=== PATIENT | female | born 1975 | race Caucasian/White ===

== ENCOUNTER 2024-03-02 12:34 | Inpatient (IN) ==
--- NOTE | 2024-03-02 13:08 | Emergency Department Note ---
Impression & Plan Left leg cellulitis, Hyponatremia, Hypokalemia ED Provider Note NAME: GRISELDA RUBALCAVA AGE: 48 SEX: F : 1975 ARRIVES VIA: Walk-In INFORMANT: Patient, ED PROVIDER(S): Todd Terry MD CHIEF COMPLAINT: Rash, shortness of breath, outpatient referral, feels unwell MEDICAL DECISION MAKING: Patient presented due to concern for worsening left lower extremity rash. The patient does have signs consistent with cellulitis. IV was established blood work was obtained patient to have a DVT ultrasound ordered and the patient did receive IV Rocephin. Patient's blood work showed a white count of 15 with a normal hemoglobin and platelet count kidney function was unremarkable. Patient is hyponatremic at 129 with mildly low potassium at 3.4. Troponin negative. Patient's procalcitonin was 2. Pa patient's chest x-ray was negative. The patient's DVT ultrasound does not show evidence of DVT but does have lymphadenopathy that is likely reactive. I did inform the patient of these findings. After further discussion with the patient patient would prefer inpatient treatment which did not think is unreasonable. Vancomycin was added. I did speak the on-call hospital service Dr. Chinchilla and the patient was admitted to medicine service Discussion w/ other healthcare providers: Dr. Chinchilla inpatient medicine service Prior /Outside records reviewed: None Differential diagnosis: Cellulitis, abscess, MRSA infection, DVT, necrotizing fasciitis, dermatitis, drug eruption, allergic reaction, as well as other pathologies were considered. Diagnostics, as interpreted by me: ECG: Normal sinus rhythm, rate of 86, normal intervals, left axis deviation no ST elevations T wave inversion in lead III. Cardiac monitoring: An order was placed for continuous cardiac monitoring. The monitor shows a rate of 85 with sinus rhythm. Patient was placed on pulse oximetry Medical decision rules: None Imaging studies: I informally interpreted the patient's chest x-ray does not show obvious pneumonia or pneumothorax with formal report to follow. HPI: Patient presents due to concern for rash and outpatient referral and feeling generally unwell. Patient states that the rash began several months ago and thought this may be eczema as the patient did have some associated itchiness. The patient had been routinely applying Goldbond lotion. Patient states that occasionally she will get some clear drainage but it was never foul- smelling or purulent in nature. Patient states that she did not have any additional symptoms but noticed on Friday the patient did have feelings of nausea headache felt hot and cold but did not take a temperature at home. 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 Patient denies any history of DVT or PE but had complained of some shortness of breath today and was referred here for further evaluation treatment for [facility]. Patient denies any recent surgeries procedures or hospitalizations no history of DVT or PE in the patient denies any chest pain. Patient did report feeling feverish but no documented elevated temperature and the patient states that she did take a temperature at home and was afebrile. Patient denies any falls or trauma no tobacco use. Patient denies any estrogen replacement therapy or control. No recent prolonged car or plane travel. Patient states that she does have pain and worsening redness and swelling to the distal left lower extremity and has been scratching at it. Patient denies nausea vomiting or diarrhea PAST MEDICAL HISTORY: See Below PAST SURGICAL HISTORY: See Below SOCIAL HISTORY: See Below HOME MEDICATIONS: See Below ALLERGIES: See Below VITALS: See Below PHYSICAL EXAMINATION: GENERAL: NAD, non-toxic. Wearing glasses. EYE EXAM: Normal conjunctiva. PERRL, no anisocoria and EOM's grossly intact w/o pain. OROPHARYNX: Moist mucus membranes, grossly normal dentition. NECK: Trachea midline, no stridor. Supple, no nuchal rigidity, no adenopathy, non-tender. No signs of meningismus. FROM of the neck with good chin to chest and neck extension. LUNGS: Clear to auscultation. Normal chest wall mechanics. HEART: NSR, no MRG. ABDOMEN: Abdomen soft, non-tender, no masses, no rebound or guarding. BACK: No CVA TTP. SKIN: No rashes and no bruising. UPPER EXTREMITIES: Upper extremities are grossly normal. LOWER EXTREMITIES: Grossly normal, warm tender and red rash with excoriations noted healing eschar is noted from the proximal polk distally, blanching erythema without crepitus good DP pulse NEURO EXAM: A&O x3, cranial nerves II-XII grossly intact, normal speech, moves all 4 extremities. 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 Beliefs That Will Affect Care: None Current Living Situation: Family Feels Safe at Home: Yes Safety Concerns: Feels Safe At This Time Assistive Devices: None Allergies Allergies Allergy/AdvReac Type Severity Reaction Status Date / Time animal dander Allergy Mild runny Unverified 03/02/24 16:26 nose, itchy eyes tree and shrub pollen Allergy Mild runny Unverified 03/02/24 16:26 nose, itchy eyes Home Meds Home Medications Medication Instructions Recorded Confirmed Calcium + D 2 tab PO PM 03/02/24 03/02/24 Multi Vitamin 2 tab PO PM 03/02/24 03/02/24 albuterol sulfate 90 mcg/actuation 2 puff inhalation Q4H PRN Other 03/02/24 03/02/24 aerosol inhaler fluticasone propionate 220 2 puff inhalation UD PRN Cough 03/02/24 03/02/24 mcg/actuation HFA aerosol inhaler Results & Data (ED) Vital Signs Vital Signs - 24 hr 03/02/24 12:38 Temperature 36.6 C Temperature Source Oral Pulse Rate 94 H Respiratory Rate 24 Respiratory Depth Shallow Blood Pressure 130/85 Blood Pressure Mean 100 Pulse Oximetry 97 Oxygen Delivery Method Room Air Sepsis Recent Fever Within 48 Hours Yes Sepsis New/Unexplained Change in Mental Status No Sepsis Action Taken by Nursing No Action Required Home Medications Current Medication List: was personally reviewed by me Laboratory Data Attestation: I reviewed the patient's lab results. 03/03/24 06:33 03/03/24 06:33 Lab Results 03/02/24 03/02/24 03/02/24 Range/Units 12:59 13:39 14:27 WBC 15.85 H (4.8-10.8) K/ul RBC 4.72 (4.20-5.40) M/uL Hgb 13.1 (12.0-16.0) g/dl Hct 38.1 (37.0-47.0) % MCV 80.7 (80.0-100.0) fL MCH 27.8 (25.0-34.0) pg MCHC 34.4 (32.0-36.0) g/dL RDW Std Deviation 38.2 (36.4-46.3) fL RDW Coeff of Jennifer 13.1 (11.5-14.5) % Plt Count 260 (130-400) K/uL MPV 9.3 L (9.4-12.4) fL Immature Gran % (Auto) 0.8 % Neut % (Auto) 87.9 % Lymph % (Auto) 4.9 % Whiteside % (Auto) 6.2 % Eos % (Auto) 0.0 % Baso % (Auto) 0.2 % Neut # (Auto) 13.92 H (1.40-6.50) K/uL Lymph # (Auto) 0.78 L (1.20-3.40) K/uL Whiteside # (Auto) 0.99 H (0.11-0.59) K/uL Eos # (Auto) 0.00 (0.00-0.50) K/uL Baso # (Auto) 0.03 (0.00-0.20) K/uL Immature Gran # (Auto) 0.13 (0.01-0.20) K/uL PT 11.9 (9.0-12.0) Seconds INR 1.1 (0.9-1.1) APTT 35 H (21-31) Seconds PTT Ratio 1.2 Sodium 129 L (136-145) mmol/L Potassium 3.4 L (3.5-5.1) mmol/L Chloride 96 L (98-107) mmol/L Carbon Dioxide 23 (21-32) mmol/L Anion Gap 10 (3-11) BUN 17 (6-23) mg/dl Creatinine 0.76 (0.6-1.2) mg/dl Est Cr Clr Drug Dosing 111.7 ml/min Est GFR ( Amer) 106.0 ml/min Est GFR (Non-Af Amer) 91.5 ml/min BUN/Creatinine Ratio 22.4 H (10-20) Glucose 115 H (70-99(Fasting)) mg/dl Calcium 8.9 (8.6-10.3) mg/dl Total Bilirubin 0.9 (0.2-1.0) mg/dl AST 20 (13-39) U/L ALT 17 (7-52) U/L Alkaline Phosphatase 69 (34-104) U/L Troponin I High Sens 11.0 9.4 (0-14) pg/ml Total Protein 7.6 (6.0-8.3) gm/dl Albumin 3.8 (3.4-5.0) gm/dl Globulin 3.8 (2.5-4.0) gm/dl Albumin/Globulin Ratio 1.0 (0.9-2) Procalcitonin Cancelled 2.01 H Administered Medications Acetaminophen (Acetaminophen 325 Mg Tab) 650 mg PO Q4H PRN PRN Reason: pain/fever Stop: 04/01/24 20:57 Last Admin: 03/03/24 17:03 Dose: 650 mg Documented By: Admin: 03/03/24 05:02 Dose: 650 mg Documented By: Admin: 03/02/24 22:28 Dose: 650 mg Documented By: ROXANNE Calcium/Vitamin D (Calcium 600mg + Vit D 400 Iu Tab) 2 tab PO QPM [facility] Stop: 04/01/24 20:59 Last Admin: 03/03/24 21:31 Dose: 2 tab Documented By: Admin: 03/02/24 22:21 Dose: 2 tab Documented By: ROXANNE Heparin Sodium (Porcine) (Heparin Sod 5,000 Unit/0.5 Ml Vial) 5,000 units SQ Q8 [facility] Stop: 04/01/24 21:59 Last Admin: 03/03/24 21:32 Dose: Not Given Documented By: Admin: 03/03/24 13:32 Dose: 5,000 units Documented By: Admin: 03/03/24 05:00 Dose: Not Given Documented By: Admin: 03/02/24 22:14 Dose: Not Given Documented By: ROXANNE Ceftriaxone Sodium (Rocephin) 2,000 mg in 50 mls @ 100 mls/hr IV Q24H [facility] Stop: 03/10/24 08:59 Last Infusion: 03/03/24 09:02 Dose: Infused Documented By: Admin: 03/03/24 08:03 Dose: 100 mls/hr Documented By: NATIVIDAD Vancomycin HCl 1,250 mg/ (Sodium Chloride) 285 mls @ 200 mls/hr IV Q12H [facility] Stop: 03/10/24 05:59 Last Infusion: 03/03/24 20:01 Dose: Infused Documented By: Admin: 03/03/24 17:39 Dose: 200 mls/hr Documented By: Infusion: 03/03/24 07:28 Dose: Infused Documented By: Admin: 03/03/24 05:57 Dose: 200 mls/hr Documented By: ROXANNE Multivitamins (Multivitamin Tab) 2 tab PO QPM [facility] Stop: 04/01/24 20:59 Last Admin: 03/03/24 21:31 Dose: 2 tab Documented By: Admin: 03/02/24 22:21 Dose: 2 tab Documented By: ROXANNE Triamcinolone Acetonide (Triamcinolone Acet 0.1% Oint 80 Gm Tube) 1 appln EXT BID [facility] Stop: 04/02/24 10:29 Last Admin: 03/03/24 21:32 Dose: 1 appln Documented By: Admin: 03/03/24 11:12 Dose: 1 appln Documented By: NATIVIDAD Discontinued Medications Sodium Chloride (Nss) 1,000 mls @ 999 mls/hr IV .Q1H1M ONE Stop: 03/02/24 14:20 Last Infusion: 03/02/24 14:51 Dose: Infused Documented By: Admin: 03/02/24 13:32 Dose: 999 mls/hr Documented By: ABAD Ceftriaxone Sodium (Rocephin) 1,000 mg in 50 mls @ 100 mls/hr IV NOW STA Stop: 03/02/24 13:49 Last Infusion: 03/02/24 14:01 Dose: Infused Documented By: Admin: 03/02/24 13:31 Dose: 100 mls/hr Documented By: ABAD Vancomycin HCl 2,750 mg/ (Sodium Chloride) 555 mls @ 200 mls/hr IV NOW ONE Stop: 03/02/24 19:32 Last Infusion: 03/02/24 21:48 Dose: Infused Documented By: Admin: 03/02/24 17:33 Dose: 200 mls/hr Documented By: MONI Sodium Chloride (Nss) 1,000 mls @ 125 mls/hr IV .Q8H [facility] Stop: 03/03/24 04:57 Last Infusion: 03/03/24 06:37 Dose: Infused Documented By: Admin: 03/02/24 22:20 Dose: 125 mls/hr Documented By: ROXANNE Ketorolac Tromethamine (Ketorolac Tromethamine 15 Mg/Ml Vial) 10 mg IV NOW ONE Stop: 03/02/24 13:21 Last Admin: 03/02/24 13:31 Dose: 10 mg Documented By: ABAD Ketorolac Tromethamine (Ketorolac Tromethamine 15 Mg/Ml Vial) 15 mg IV NOW STA Stop: 03/03/24 18:20 Last Admin: 03/03/24 18:36 Dose: 15 mg Documented By: NATIVIDAD Ondansetron HCl (Ondansetron Inj 2 Mg/Ml 2 Ml Vial) 4 mg IV NOW STA Stop: 03/02/24 13:22 Last Admin: 03/02/24 13:31 Dose: 4 mg Documented By: ABAD Potassium Chloride (Potassium Chloride Crtab 20 Meq Tabcr) 40 meq PO NOW STA Stop: 03/02/24 17:56 Last Admin: 03/02/24 18:45 Dose: 40 meq Documented By: MONI Imaging Data Radiologist's Impression: Chest X-Ray 03/02/24 12:46 XR chest 1V not portable HISTORY: 48 years-old Female Chest pain, nonspecific COMPARISON: None TECHNIQUE: AP view of the chest FINDINGS: Cardiomediastinal and hilar silhouettes are within normal limits. No pneumothorax, pleural effusion or airspace consolidation. The bones appear normal. IMPRESSION: No acute process. ACT 112: Negative or not required by law. The above report was generated using voice recognition software. It may contain grammatical, syntax or spelling errors. Electronically signed by: Jerry Davis M.D. 03/02/2024 1:48 PM Venous Doppler Study 03/02/24 13:20 LEFT LOWER EXTREMITY VENOUS DOPPLER HISTORY: Left leg pain, swelling COMPARISON STUDY: None. FINDINGS: There is normal compressibility, flow, and augmentation within the left lower extremity deep venous system. There are few prominent left inguinal lymph nodes with the largest measuring 29 x 16 x 20 mm. These demonstrate thin cortex and a normal fatty hilum. Therefore, these are likely reactive. IMPRESSION: 1. No DVT within the left lower extremity. 2. Mild left inguinal lymphadenopathy. This is likely reactive. ACT 112: Negative or not required by law. Electronically signed by: Michael Sam M.D. 03/02/2024 4:19 PM Discharge Plan Visit Data Chief Complaint: Rash Stated Complaint: RASH ON LT, FEVER, NAUSEA ED Provider: Todd Terry Discharge Problem: Left leg cellulitis, Hyponatremia, Hypokalemia Patient Disposition: Admitted As Inpatient Discharge Instructions Interventions: ED Discharge Assessment Last Done: 03/02/24 20:17
[2024-03-02 13:19] LABS: Basophils # (auto) 0.03 K/uL (0.00-0.20); Basophils % (auto) 0.2 %; Hematocrit (blood only) 38.1 % (37.0-47.0); Hemoglobin 13.1 g/dl (12.0-16.0); Immature Granulocytes # (auto) 0.13 K/uL (0.01-0.20); Immature Granulocytes % (auto) 0.8 %; Lymphocytes # (auto) 0.78 K/uL (1.20-3.40); Lymphocytes % (auto) 4.9 %; Mean Corpuscular Hemoglobin 27.8 pg (25.0-34.0); Mean Corpuscular Hgb Conc 34.4 g/dL (32.0-36.0); Mean Corpuscular Volume 80.7 fL (80.0-100.0); Mean Platelet Volume 9.3 fL (9.4-12.4); Monocytes # (auto) 0.99 K/uL (0.11-0.59); Monocytes % (auto) 6.2 %; Neutrophils # (auto) 13.92 K/uL (1.40-6.50); Neutrophils % (auto) 87.9 %; Platelet Count 260 K/uL (130-400); RDW Coefficient of Variation 13.1 % (11.5-14.5); RDW Standard Deviation 38.2 fL (36.4-46.3); Red Blood Count 4.72 M/uL (4.20-5.40); White Blood Count 15.85 K/ul (4.8-10.8)
[2024-03-02] MEDS: KETOROLAC TROMETHAMINE 15 MG/ML VIAL IV ONE (13:31)
[2024-03-02] MEDS: ONDANSETRON INJ 2 MG/ML 2 ML VIAL IV STA (13:31)
[2024-03-02] MEDS: cefTRIAXone SODIUM 1,000 MG/50 ML BAG IV STA (13:31)
[2024-03-02] MEDS: SODIUM CHLORIDE 0.9% 1,000 ML IV ONE (13:32)
[2024-03-02 13:33] LABS: Albumin Level 3.8 gm/dl (3.4-5.0); BUN Creatinine Ratio 22.4 (10-20); Bilirubin,Total 0.9 mg/dl (0.2-1.0); Calcium 8.9 mg/dl (8.6-10.3); Creatinine Clr Calc Pharmacy 111.7 ml/min; Est GFR (Non-African American) 91.5 ml/min; Globulin 3.8 gm/dl (2.5-4.0); Potassium 3.4 mmol/L (3.5-5.1); Total Protein 7.6 gm/dl (6.0-8.3)
[2024-03-02 13:49] LABS: INR 1.1 (0.9-1.1); Partial Thromboplastin Ratio 1.2; Partial Thromboplastin Time 35 Seconds (21-31); Prothrombin Time 11.9 Seconds (9.0-12.0)
--- NOTE | 2024-03-02 13:49 | XRay Report ---
XR chest 1V not portable HISTORY: 48 years-old Female Chest pain, nonspecific COMPARISON: None TECHNIQUE: AP view of the chest FINDINGS: Cardiomediastinal and hilar silhouettes are within normal limits. No pneumothorax, pleural effusion o r airspace consolidation. The bones appear normal. IMPRESSION: No acute process. ACT 112: Negative or not required by law. The above report was generated using voice recognition software. It may contain grammatical, syntax o r spelling errors. Electronically signed by: Jerry Davis M.D. 03/02/2024 1:48 PM
--- NOTE | 2024-03-02 16:20 | Ultrasound Report ---
LEFT LOWER EXTREMITY VENOUS DOPPLER HISTORY: Left leg pain, swelling COMPARISON STUDY: None. FINDINGS: There is normal compressibility, flow, and augmentation within the left lower extremity deysi p venous system. There are few prominent left inguinal lymph nodes with the largest measuring 29 x 16 x 20 mm. These demonstrate thin cortex and a normal fatty hilum. Therefore, these are likely reactiv e. IMPRESSION: 1. No DVT within the left lower extremity. 2. Mild left inguinal lymphadenopathy. This is likely reactive. ACT 112: Negative or not required by law. Electronically signed by: Michael Sam M.D. 03/02/2024 4:19 PM
--- NOTE | 2024-03-02 16:20 | Electrocardiogram Report ---
Test Reason : Blood Pressure : / mmHG Vent. Rate : 086 BPM Atrial Rate : 086 BPM P-R Int : 152 ms QRS Dur : 106 ms QT Int : 392 ms P-R-T Axes : 023 -34 -03 degrees QTc Int : 469 ms Normal sinus rhythm Left axis deviation Incomplete right bundle branch block Minimal voltage criteria for LVH, may be normal variant ( Fenton product ) Anterior infarct , age undetermined Abnormal ECG No previous ECGs available Confirmed by Jude Lai ([id number]) on 03/02/2024 4:20:24 PM Referred By: Confirmed By:Jude Lai
[2024-03-02] MEDS ORDERED: VANCOMYCIN CONSULT ACTIVE PRN ×2 (16:46→20:58)
[2024-03-02] MEDS: VANCOMYCIN HCL 2,750 MG in SODIUM CHLORIDE 0.9% 500 ML IV ONE (17:33)
--- NOTE | 2024-03-02 17:43 | History & Physical Report ---
Date of Service March 02, 2024 Assessment & Plan (1) Left leg cellulitis: Plan: Patient is a 48-year-old female with past medical history of asthma who presents with left lower extremity swelling, redness for several weeks. Patient started to notice fever, chills since last 2 days. She also reports nausea, low appetite and weakness Leukocytosis present BMP reveals sodium of 129, potassium of 3.4. BUN/creatinine within normal limits. Liver enzymes within normal limits. Procalcitonin elevated Chest x-ray personally reviewed; no infiltrates Venous duplexno DVT, mild left inguinal lymphadenopathy Obtain blood culture Continue on ceftriaxone and vancomycin; plan to transition to oral antibiotics after improvement in symptoms Obtain ESR, CRP (2) Hyponatremia: Plan: Sodium of 129 on presentation Likely secondary to p.o. intake Obtain urine electrolytes, urine osmolarity Started on normal saline at 125 cc/h for 1 L BMP tomorrow a.m. (3) Hypokalemia: Plan: Potassium3.4. Will replete Follow-up BMP tomorrow a.m. Chronic conditions; Asthma; no flare, wheeze on examination. Continue home inhalers. Full code DVT prophylaxis heparin Time spent evaluating patient, direct bedside care, chart review, placing orders, interpretation of diagnostic studies, discussion with consultants, patient, and family members, as well as other required patient management activities is 60 minutes Please note the above document was generated using voice recognition software. It may contain grammatical, syntax or spelling errors. Any formal questions or concerns about the content, text or information contained within the body of this dictation should be directly addressed to the provider for clarification History of Present Illness Chief Complaint: Left lower extremity cellulitis Primary Care Provider: NO PCP History obtained from chart review and interview with the patient. Patient is a 48-year-old female with past medical history of asthma who presents with left lower extremity swelling, redness for several weeks. Patient noticed rash on her left leg since December; used over the counter cream. Patient started to notice fever, chills since last 2 days. She also reports nausea, low appetite and weakness They also noticed the rash going up her thigh and groin. She reports scratching on the rash; no other history of trauma. She denies any chest pain, shortness of breath, abdominal pain or urinary symptoms. On presentation to the ED, patient is afebrile, saturating well on room air. Leukocytosis present BMP reveals sodium of 129, potassium of 3.4. BUN/creatinine within normal limits. Liver enzymes within normal limits. 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 Surgical history; no past surgical history Allergies Allergy/AdvReac Type Severity Reaction Status Date / Time animal dander Allergy Mild runny Unverified 03/02/24 16:26 nose, itchy eyes tree and shrub pollen Allergy Mild runny Unverified 03/02/24 16:26 nose, itchy eyes Home Medications Medication Instructions Recorded Confirmed Type Calcium + D 2 tab PO PM 03/02/24 03/02/24 History Multi Vitamin 2 tab PO PM 03/02/24 03/02/24 History albuterol sulfate 90 mcg/actuation 2 puff inhalation Q4H PRN Other 03/02/24 03/02/24 History aerosol inhaler fluticasone propionate 220 2 puff inhalation UD PRN Cough 03/02/24 03/02/24 History mcg/actuation HFA aerosol inhaler Past Med/Surg History Social History Smoking Status: Never smoker Feels Safe at Home: Yes Review of Systems Review of Systems: All systems reviewed & are unremarkable except as noted in Subjective Physical Exam Physical Exam: Constitutional: WD/WN, vitals as above, NAD, sitting up in bed, pleasant, conversing easily Respiratory: normal respiratory effort, lungs clear to auscultation, no wheeze, rales, rhonchi. Normal insp/exp effort, no accessory muscle use Cardiovascular: RRR, no murmur, no edema Vessels: no JVD or carotid bruit Chest: normal inspection of chest Abdomen: normal bowel sounds, soft, nontender, no hepatosplenomegaly Musculoskeletal: no cyanosis or clubbing, extremities motor strength 5/5 Skin: Left lower extremity; redness, swelling and warmth present in the left leg. Scratch hernandez present throughout. No open wounds. Right linear streaks on the thigh Neurologic: PERRL, EOMI, accommodation nl, no face palsy, no dysarthria CN's II- XI intact bilaterally and moves all extremities Psychiatric: A+Ox3, euthymic affect Results & Data Results & Data Vital Signs (Past 12 Hours) Vital Signs Temp Pulse Pulse Resp BP BP Pulse Ox 03/02/24 17:30 77 22 133/79 96 03/02/24 14:30 75 21 139/81 97 03/02/24 14:00 72 20 98 03/02/24 13:36 79 03/02/24 13:35 78 20 97 03/02/24 12:46 98 03/02/24 12:46 98 03/02/24 12:38 36.6 C 94 H 24 130/85 97 O2 Del Method O2 Flow Rate 03/02/24 17:30 Room Air 03/02/24 14:30 03/02/24 14:00 03/02/24 13:36 03/02/24 13:35 03/02/24 12:46 Room Air 03/02/24 12:46 Room Air 0 03/02/24 12:38 Room Air Code Status & VTE Plan VTE Prophylaxis Plan VTE Prophylaxis will be ordered: Yes
[2024-03-02] MEDS: POTASSIUM CHLORIDE CRTAB 20 MEQ TABCR PO STA (18:45)
[2024-03-02] MEDS ORDERED: ALBUTEROL HFA 8 GM INHALER INH PRN (20:58)
[2024-03-02] MEDS ORDERED: MAGNESIUM HYDROXIDE SUSP 30 ML UDC PO PRN (20:58)
[2024-03-02] MEDS ORDERED: FLUTICASONE FUROATE 200MCG 14 PUFFS/INHALER INH PRN (21:05)
[2024-03-02 21:31] LABS: Urine Chloride < 15 mmol/L; Urine Potassium 43.2 mmol/L; Urine Sodium < 10 mmol/L
--- NOTE | 2024-03-02 21:36 | Pharmacy Report ---
Pharmacy PK ABX Note - Date of Service March 02, 2024 - Assessment and Plan Assessment 48 year old F receiving Vancomycin and Ceftriaxone for treatment of left leg cellulitis. * Day #1 of antimicrobial therapy. Failed outpatient Cefdinir. * Afebrile. Leukocytosis of 16k. SCr 0.76 mg/dL. Procalcitonin elevated at 2.01. * Blood cultures pending. Plan Vancomycin * Loading dose: 2750 mg IV x 1 * Maintenance dose: 1250 mg IV every 12 hours * Regimen is predicted to achieve target AUC/KEVIN of 400-600 mg/L.hr * Random level ordered for: 03/04/24 Ceftriaxone * 2000 mg IV every 24 hours Pharmacy will continue to follow and will adjust dose/frequency as necessary. Thank you. Pharmacy has transitioned to AUC monitoring for vancomycin. AUC/KEVIN is the preferred PK/PD target and is associated with decreased risk of nephrotoxicity compared to traditional trough targets.
[2024-03-02] MEDS: HEPARIN SOD 5,000 UNIT/0.5 ML VIAL SQ SCH (22:14)
[2024-03-02] MEDS: SODIUM CHLORIDE 0.9% 1,000 ML IV SCH (22:20)
[2024-03-02] MEDS: MULTIVITAMIN TAB PO SCH (22:21)
[2024-03-02] MEDS: CALCIUM 600MG + VIT D 400 IU TAB PO SCH (22:21)
[2024-03-02] MEDS: ACETAMINOPHEN 325 MG TAB PO PRN (22:28)
[2024-03-03] MEDS ORDERED: VANCOMYCIN LEVEL ONE (05:30)
[2024-03-03] MEDS: VANCOMYCIN HCL 1,250 MG in SODIUM CHLORIDE 0.9% 250 ML IV SCH (05:57)
[2024-03-03 07:08] LABS: Basophils # (auto) 0.03 K/uL (0.00-0.20); Basophils % (auto) 0.4 %; Eosinophils # (auto) 0.12 K/uL (0.00-0.50); Eosinophils % (auto) 1.5 %; Hematocrit (blood only) 32.7 % (37.0-47.0); Hemoglobin 10.8 g/dl (12.0-16.0); Immature Granulocytes # (auto) 0.05 K/uL (0.01-0.20); Immature Granulocytes % (auto) 0.6 %; Lymphocytes # (auto) 0.54 K/uL (1.20-3.40); Lymphocytes % (auto) 6.8 %; Mean Corpuscular Hemoglobin 27.1 pg (25.0-34.0); Mean Corpuscular Volume 82.2 fL (80.0-100.0); Mean Platelet Volume 9.6 fL (9.4-12.4); Monocytes # (auto) 0.83 K/uL (0.11-0.59); Monocytes % (auto) 10.5 %; Neutrophils # (auto) 6.34 K/uL (1.40-6.50); Neutrophils % (auto) 80.2 %; Platelet Count 200 K/uL (130-400); RDW Coefficient of Variation 13.2 % (11.5-14.5); RDW Standard Deviation 39.4 fL (36.4-46.3); Red Blood Count 3.98 M/uL (4.20-5.40); White Blood Count 7.91 K/ul (4.8-10.8)
[2024-03-03 07:24] LABS: Albumin Globulin Ratio 1.1 (0.9-2); Albumin Level 3.1 gm/dl (3.4-5.0); BUN Creatinine Ratio 30.2 (10-20); Bilirubin,Total 0.5 mg/dl (0.2-1.0); C Reactive Protein 26.32 mg/dl (0-0.5); Calcium 7.9 mg/dl (8.6-10.3); Creatinine Clr Calc Pharmacy 160.2 ml/min; Est GFR (African American) 128.3 ml/min; Est GFR (Non-African American) 110.7 ml/min; Globulin 2.9 gm/dl (2.5-4.0); Potassium 3.7 mmol/L (3.5-5.1)
[2024-03-03] MEDS: cefTRIAXone SODIUM 2,000 MG/50 ML BAG IV SCH (08:03)
[2024-03-03] MEDS ORDERED: diphenhydrAMINE 2%/ZINC 0.1% CREAM 28.4GM TUBE EXT PRN (10:22)
[2024-03-03] MEDS ORDERED: TRIAMCINOLONE ACET 0.1% OINT 80 GM TUBE EXT SCH (10:30)
[2024-03-03] MEDS: TRIAMCINOLONE ACET 0.1% OINT 80 GM TUBE EXT SCH (11:12)
--- NOTE | 2024-03-03 12:50 | Hospitalist Progress Note ---
Date of Service March 03, 2024 Assessment & Plan (1) Left leg cellulitis: Plan: Patient is a 48-year-old female with past medical history of asthma who presents with left lower extremity swelling, redness for several weeks. Initially started as a rash to L pretibial surface. She tried OTC gold simmons/neosporin w/o relief. Leukocytosis present BMP reveals sodium of 129, potassium of 3.4. BUN/creatinine within normal limits. Liver enzymes within normal limits. Procalcitonin elevated Chest x-ray personally reviewed; no infiltrates Venous duplexno DVT, mild left inguinal lymphadenopathy Obtain blood culture -NGTD Continue on ceftriaxone and vancomycin; plan to transition to oral antibiotics after improvement in symptoms ESR 58, CRP 26.32, Procal 2.01 place on triamcinolone ointment 0.1% for active stasis dermatitis, prn benadryl cream for itching (2) Hyponatremia: Plan: Sodium of 129 on presentation Likely secondary to p.o. intake Obtain urine electrolytes, urine osmolarity received IVF, sodium improvin to 134, will follow BMP tomorrow a.m. (3) Morbid obesity with BMI of 40.0-44.9, adult: Plan: BMI 44.5 encourage diet/lifestyle modifications (4) Anemia: Plan: hgb 13.1 on admission hgb today is 10.8 will obtain anemia panel (5) Hypokalemia: Plan: repleted Chronic conditions; Asthma; no flare, wheeze on examination. Continue home inhalers. Full code DVT prophylaxis heparin Dispo: pt is not yet medically stable for discharge as she is still requiring IV antibiotics PCP: Kim Clark DO A total of 46 minutes was spent coordinating, documenting, and providing care for this patient excluding time spent in the performance of separately billed services. This included personally viewing all current laboratories and imaging studies, medication reconciliation, outpatient chart review, and discussion with specialists. Admission and Anticipated Discharge Date Admission Date: March 02, 2024 Supervising Physician Co-Signing Physician Notes Patient seen and examined at bedside. Discussed with above provider. Left lower extremity cellulitis; slight improvement noted compared to yesterday. Continue IV antibiotics. Blood culture pending Hyponatremia; sodium of 129 on admission; improved to 134. Continue to monitor I have reviewed the advanced practitioner's documentation, and I agree with, and take responsibility for the plan of care I spent a total of 20 minutes coordinating, documenting, and providing care for this patient excluding time spent in the performance of separately billed services. All of the aforementioned completed while collaborating with the assigned advanced practitioner for a full treatment plan Subjective Pt was see in room 383 bed 2. Follow-up left lower extremity cellulitis. States she had a Rash to her LLE for approx 2 months and redness started 5 days ago. It persisted to get worse. She has tried OTC cream and neosporin. She has never had anything like this before. Denies f/c/s, chest pain, sob, n/v/d, abd pain. Feelss LLE is swollen and, "tight." Appetite is diminished. Review of Systems Review of Systems: All systems reviewed & are unremarkable except as noted in HPI & below Physical Exam Physical Exam: Gen: WD/WN, NAD, A&O x3 HEENT: Normocephalic, atraumatic, conjunctivae moist, sclerae anicteric, mucous membranes moist. Lung: Clear to Auscultation bilaterally, no wheezes/rales/rhonchi Heart: Regular rate, regular rhythm, no murmurs, rubs, or gallops Abdomen: Soft, NT, ND +BS x 4 Extremities: Significant left lower extremity edema with evidence of active stasis dermatitis on pretibial surfaces along with a left lower extremity cellulitis extending proximally to medial anterior thigh. Initial area of erythema is marked with a pen and there is evidence of receding erythema. Pulses intact bilaterally. Skin: Warm, no rash, negative turgor. Results & Data Results & Data Vital Signs (Past 12 Hours) Vital Signs Temp Pulse Resp BP Pulse Ox O2 Del Method 03/03/24 11:55 36.7 C 74 18 124/78 99 Room Air 03/03/24 07:18 37.1 C 74 18 104/72 96 Room Air Diagnostic Findings Chest X-Ray 03/02/24 12:46 XR chest 1V not portable HISTORY: 48 years-old Female Chest pain, nonspecific COMPARISON: None TECHNIQUE: AP view of the chest FINDINGS: Cardiomediastinal and hilar silhouettes are within normal limits. No pneumothorax, pleural effusion or airspace consolidation. The bones appear normal. IMPRESSION: No acute process. ACT 112: Negative or not required by law. The above report was generated using voice recognition software. It may contain grammatical, syntax or spelling errors. Electronically signed by: Jerry Davis M.D. 03/02/2024 1:48 PM Venous Doppler Study 03/02/24 13:20 LEFT LOWER EXTREMITY VENOUS DOPPLER HISTORY: Left leg pain, swelling COMPARISON STUDY: None. FINDINGS: There is normal compressibility, flow, and augmentation within the left lower extremity deep venous system. There are few prominent left inguinal lymph nodes with the largest measuring 29 x 16 x 20 mm. These demonstrate thin cortex and a normal fatty hilum. Therefore, these are likely reactive. IMPRESSION: 1. No DVT within the left lower extremity. 2. Mild left inguinal lymphadenopathy. This is likely reactive. ACT 112: Negative or not required by law. Electronically signed by: Michael Sam M.D. 03/02/2024 4:19 PM Medications Administered Current Inpatient Medications Acetaminophen (Acetaminophen 325 Mg Tab) 650 mg PO Q4H PRN PRN Reason: pain/fever Stop: 04/01/24 20:57 Last Admin: 03/03/24 05:02 Dose: 650 mg Albuterol (Albuterol Hfa 8 Gm Inhaler) 2 puffs INH Q4R PRN PRN Reason: Other Stop: 04/01/24 20:57 Calcium/Vitamin D (Calcium 600mg + Vit D 400 Iu Tab) 2 tab PO QPM CRISTOBAL Stop: 04/01/24 20:59 Last Admin: 03/02/24 22:21 Dose: 2 tab Fluticasone Furoate (Fluticasone Furoate 200mcg 14 Puffs/Inhaler) 1 puffs INH DAILY PRN PRN Reason: Cough Stop: 04/01/24 21:04 Heparin Sodium (Porcine) (Heparin Sod 5,000 Unit/0.5 Ml Vial) 5,000 units SQ Q8 CRISTOBAL Stop: 04/01/24 21:59 Last Admin: 03/03/24 05:00 Dose: Not Given Ceftriaxone Sodium (Rocephin) 2,000 mg in 50 mls @ 100 mls/hr IV Q24H CRISTOBAL Stop: 03/10/24 08:59 Last Infusion: 03/03/24 09:02 Dose: Infused Vancomycin HCl 1,250 mg/ (Sodium Chloride) 285 mls @ 200 mls/hr IV Q12H CRISTOBAL Stop: 03/10/24 05:59 Last Infusion: 03/03/24 07:28 Dose: Infused Magnesium Hydroxide (Magnesium Hydroxide Susp 30 Ml Udc) 30 ml PO Q6H PRN PRN Reason: Constipation Stop: 04/01/24 20:57 Miscellaneous Information (Vancomycin Consult Active) 1 each N/A UD PRN PRN Reason: Consult Stop: 04/01/24 20:57 Multivitamins (Multivitamin Tab) 2 tab PO QPM CRISTOBAL Stop: 04/01/24 20:59 Last Admin: 03/02/24 22:21 Dose: 2 tab Triamcinolone Acetonide (Triamcinolone Acet 0.1% Oint 80 Gm Tube) 1 appln EXT BID CRISTOBAL Stop: 04/02/24 10:29 Last Admin: 03/03/24 11:12 Dose: 1 appln Zinc Acetate/Diphenhydramine (Diphenhydramine 2%/Zinc 0.1% Cream 28.4gm Tube) 1 appln EXT BID PRN PRN Reason: itching lower leg Stop: 04/02/24 10:21
[2024-03-03] MEDS: KETOROLAC TROMETHAMINE 15 MG/ML VIAL IV STA (18:36)
[2024-03-03] MEDS ORDERED: oxyCODONE HCL IR 5 MG TAB (IMMEDIATE RELEASE) PO PRN (19:09)
[2024-03-03] MEDS ORDERED: KETOROLAC 30 MG/ML VIAL IV PRN (22:00)
--- OUTSIDE RECORDS SUMMARY | 2024-03-04 02:17 | External Medical Summary | Summary of Care ---
Author Name Unknown Organization [facility] Address [address] [facility] [facility] [place] [address] Phone [phone] Care Team Providers Care Curriculum Specialist Name Role Phone Kim Clark DO Primary Care Provider [phone] Reason for Visit * Reason Onset Date Comments Advice 10/24/2023 Encounter Details Date Type Department Care Team (Late st Contact Info) Description 10/24/2023 Telephone Family Practice [place] [address] [place] [id number] Kim Clark DO [address] [facility] [place] [address] Advice Allergies No known active allergiesdocumented as of this encounter (statuses as of 10/24/2023) Medications Medication Sig Dispensed Refills Start Date End Date Status Albuterol Sulfate HFA 108 (90 Base) MCG/ACT Inhalation Aerosol SolutionIndications:Int ermittent asthma with reliever use up to twice per week without complication Inhale 2 Puffs by mouth as needed for Cough. 18 g 1 03/05/2023 Active Fluticasone Propionate HFA 220 MCG/ACT Inhalation Aerosol (Flovent HFA)Indications:Intermi ttent asthma with reliever use up to twice per week without complication Inhale 2 Puffs by mouth as needed for Cough. 12 g 1 03/05/2023 Active documented as of this encounter (statuses as of 10/24/2023) Active Problems Problem Noted Date Diagnosed Date Intermittent asthma with reliever use up to twic e per week 09/30/2022 Migraine without aura and wi thout status migrainosus, not intractable 08/09/2016 documented as of this encounter (statuses as of 10/24/2023) Resolved Problems Problem Noted Date Diagnosed Date Resolved Date Asthma 09/30/2022 09/30/2022 documented as of this encounter (statuses as of 10/24/2023) Immunizations Name Administration Dates Next Due COVID-19 mRNA, LNP-s, No Pre serve, 2-Dose Series (Nasuni) 01/20/2021,01/03/2021 Seasonal Influenza Virus Vac cine, Unspecified Formulation 08/27/2022,07/25/2020,10/08/2018,2016,08/09/2016,10/11/2015,10/11/2010,1 11/21/2007,09/18/2007,10/16/2006, 005 Seasonal Influenza, Quadrivalent, ID 08/09/2016, 10/11/2015 Seasonal Influenza, Recombin ant, RIV4, PF, ([place]ock) 10/08/2018 Seasonal Influenza, Split, I IV3, With Preserve, Inj 07/25/2020,08/29/2014 documented as of this encounter Social History Tobacco Use Types Packs/Day Years Used Date Smoking Tobacco: Never Smokeless Tobacco: Never Alcohol Use Standard Drinks/Week Comments Yes 0 (1 standard drink = 0.6 oz pur e alcohol) AUDIT-C Answer Date Recorded Q1: How often do you have a drink containing alc ohol? Monthly or less 09/30/2022 Average Number of Drinks Not on file 022 Frequency of Binge Drinking Not on file 09/04 Sex and Gender Information Value Date Recorded Sex Assigned at Not on file Gender Identity Not on file Sexual Orientation Not on file Job Start Date Occupation Industry Not on file Not on file Not on file documented as of this encounter Miscellaneous Notes * Telephone Encounter - Erlinda Mcmillan, LOW - 10/24/2023 1:43 PM EST Spoke with pt. Declined appt at another clinic. She states she is half way thru antibiotic and willsee how she feels in a few days. She will call back if she still need an appt. * Telephone Encounter - Alicia Ayala LPN - 10/24/2023 11:29 AM EST Pt needs to be re-evaluated in person. Please call and offer appts, or convenient care. * Telephone Encounter - Sandie Hayden OSA - 10/24/2023 9:48 AM EST 1. When were you seen for this problem? 10.06.23 and 10.19.23 2. What provider did you see for this problem? [facility] 3. What medications are you presently taking? Cefdinir (2nd round), prednisone (2nd round) Flonase,Albuterol Rescue and Fluticasone inhalers, 4. What is it that is no better? Please refer to Call Details.-Attempted to schedule pt-no appts available documented in this encounter Plan of Treatment Health Maintenance Due Date Last Done Comments Hepatitis B (1 of 3 - 3-dose series) 1973 Lipid Panel 1973 Pneumococcal Vaccine: Pediatrics (0 to 5 Years) and At-Risk Patients (6 to 64 Years) (1 - PCV) 1979 Depression Screening 1985 HIV Screening 1988 Hepatitis C Screening 1991 DTaP,Tdap,and Td Vaccines (1 - Tdap) 1992 Pap Smear 1994 Cervical Cancer Screening 2003 HPV/Co-Test 2003 Mammogram 2013 Cologuard 2018 Colonoscopy 2018 Sigmoidoscopy 2018 Diabetes Screening 10/30/2021 10/30/2018 *SPIROMETRY ONCE FOR ASTHMA-ADULT 10/02/2022 Colorectal Cancer Screening 05/29/2023 Fecal Occult Blood Test 05/29/2023 05/29/2022 COVID-19 Vaccine (4 - 3-24 season) 2023 04/06/2022, 01/20/2021, 01/03/2021 Influenza Vaccine (FLU shot) (#1) 2023 08/27/2022, 07/25/2020, 07/25/2020, Additional history exists Zoster Vaccines (1 of 2) 2023 GARDASIL-HPV IMMUNIZATION SERIES Aged Out No longer eligible based on patient's age to complete this topic MENINGOCOCCAL (MENACTRA/MENVEO) Aged Out No longer eligible based on patient's age to complete this topic documented as of this encounter Medical Devices Not on filedocumented as of this encounter Care Teams Curriculum Specialist Relationship Specialty Start Date End Date Kim Clark DO [facility] [facility] [place] [id number] PCP - General Family Medicine 09/30/22 documented as of this encounter
[2024-03-04] MEDS: VANCOMYCIN LEVEL ONE (05:47)
[2024-03-04 06:06] LABS: Basophils # (auto) 0.02 K/uL (0.00-0.20); Basophils % (auto) 0.3 %; Eosinophils # (auto) 0.25 K/uL (0.00-0.50); Eosinophils % (auto) 4.2 %; Immature Granulocytes # (auto) 0.03 K/uL (0.01-0.20); Immature Granulocytes % (auto) 0.5 %; Lymphocytes % (auto) 11.9 %; Mean Corpuscular Hgb Conc 33.3 g/dL (32.0-36.0); Mean Corpuscular Volume 81.1 fL (80.0-100.0); Mean Platelet Volume 9.7 fL (9.4-12.4); Monocytes # (auto) 0.69 K/uL (0.11-0.59); Monocytes % (auto) 11.7 %; Neutrophils % (auto) 71.4 %; Platelet Count 240 K/uL (130-400); RDW Coefficient of Variation 13.1 % (11.5-14.5); RDW Standard Deviation 38.5 fL (36.4-46.3); Red Blood Count 4.07 M/uL (4.20-5.40); White Blood Count 5.89 K/ul (4.8-10.8)
[2024-03-04 06:19] LABS: Albumin Globulin Ratio 1.1 (0.9-2); Albumin Level 3.2 gm/dl (3.4-5.0); BUN Creatinine Ratio 23.1 (10-20); Bilirubin,Total 0.4 mg/dl (0.2-1.0); Calcium 8.5 mg/dl (8.6-10.3); Creatinine Clr Calc Pharmacy 130.6 ml/min; Est GFR (Non-African American) 103.5 ml/min; Magnesium 1.9 mg/dl (1.7-2.4); Potassium 3.6 mmol/L (3.5-5.1); Total Protein 6.2 gm/dl (6.0-8.3)
[2024-03-04 06:44] LABS: Folate (Folic Acid),Ser orPlas > 22.30 ng/ml (>5.38); Vitamin B12 494 pg/ml (180-914)
--- NOTE | 2024-03-04 08:37 | Pharmacy Report ---
Pharmacy PK ABX Note - Date of Service March 04, 2024 - Assessment and Plan Assessment 48 year old F receiving vancomycin and ceftriaxone for treatment of left leg cellulitis. * Day #3 of antimicrobial therapy. Failed outpatient Cefdinir. * Afebrile. Leukocytosis of 16k originally, now improved to 5.9 K. Renal function stable. * Blood cultures show no growth at 24 hours. * Anticipating transition to PO antibiotics in coming days Plan Vancomycin * Current regimen: 1250 mg IV every 12 hours * Trough level obtained 03/04/24 resulted as 6.7 mcg/mL. This is predicted to result in subtherapeutic AUC/KEVIN below 400 mg/L.hr * Change to 1250 mg IV every 8 hours * Predicted AUC at steady state: 564 mg/L.hr with new regimen * Will repeat level in the next 48-72 hours if therapy is continued and/or change in patient clinical status Ceftriaxone * 2000 mg IV every 24 hours Pharmacy will continue to follow and will adjust dose/frequency as necessary. Thank you. Pharmacy has transitioned to AUC monitoring for vancomycin. AUC/KEVIN is the preferred PK/PD target and is associated with decreased risk of nephrotoxicity compared to traditional trough targets.
[2024-03-04] MEDS: ADVANCED PROBIOTIC 625 MG CAPSULE PO SCH (13:19)
[2024-03-04] MEDS: VANCOMYCIN HCL 1,250 MG in SODIUM CHLORIDE 0.9% 250 ML IV SCH (13:20)
--- NOTE | 2024-03-04 13:41 | CT Scan Report ---
CT tib/fib LT wo con HISTORY: 48 years-old Female Rule out underlying abscess acute pain and swelling of the left lower l eg. Clinical concern for possible abscess COMPARISON: Ultrasound Doppler study 03/02/2024 TECHNIQUE: Multiple axial CT images of the left tibia and fibula were obtained without IV contrast. A dose lowering technique was used consistent with the principals of RAYMOND. FINDINGS: Moderate subcutaneous edema is most pronounced anteriorly in the lower leg. There is associated diffu se dermal thickening. No fluid collections. The musculature appears unremarkable by CT. Suboptimal ev aluation of the ligaments and tendons by CT technique. There is lateral tilt of the patella within the trochlear groove. There is at least mild osteoarthrit is of the knee and ankle. No acute fracture, dislocation, destructive bone lesion or osseous erosion is identified. IMPRESSION: 1. No acute osseous abnormality. 2. Moderate subcutaneous edema with dermal thickening. Differential considerations include cellulitis , lymphedema or venous stasis. 3. No fluid collections to suggest abscess. 4. Osteoarthritis of the knee and ankle with small knee joint effusion. ACT 112: Negative or not required by law. The above report was generated using voice recognition software. It may contain grammatical, syntax o r spelling errors. Electronically signed by: Jerry Davis M.D. 03/04/2024 1:40 PM
--- NOTE | 2024-03-04 14:38 | Hospitalist Progress Note ---
Date of Service March 04, 2024 Assessment & Plan (1) Left leg cellulitis: Plan: Patient is a 48-year-old female with past medical history of asthma who presents with left lower extremity swelling, redness for several weeks. Initially started as a rash to L pretibial surface. She tried OTC gold simmons/neosporin w/o relief. Leukocytosis present on admission; improved. Procalcitonin elevated Chest x-ray personally reviewed; no infiltrates Venous duplexno DVT, mild left inguinal lymphadenopathy Blood cultureno growth in 24 hours ESR 58, CRP 26.32, Procal 2.01 CT of the leg did not show any underlying abscess Continue on ceftriaxone and vancomycin; plan to transition to oral antibiotics after improvement in symptoms Appreciate infectious disease input; (2) Hyponatremia: Plan: Sodium of 129 on presentation; improved to 136 after hydration Likely secondary to p.o. intake (3) Morbid obesity with BMI of 40.0-44.9, adult: Plan: BMI 44.5 encourage diet/lifestyle modifications Discussed following up with PCP to discuss further intervention (4) Hypokalemia: Plan: repleted Chronic conditions; Asthma; no flare, wheeze on examination. Continue home inhalers. Full code DVT prophylaxis heparin Dispo: pt is not yet medically stable for discharge as she is still requiring IV antibiotics PCP: Kim Clark, DO Please note the above document was generated using voice recognition software. It may contain grammatical, syntax or spelling errors. Any formal questions or concerns about the content, text or information contained within the body of this dictation should be directly addressed to the provider for clarification Admission and Anticipated Discharge Date Admission Date: March 02, 2024 Subjective Patient seen and examined at bedside. She reports that the swelling in the leg is persistent. Reports of pain on the heel. No other significant events overnight Has been afebrile Review of Systems Review of Systems: All systems reviewed & are unremarkable except as noted in Subjective Physical Exam Physical Exam: Constitutional: WD/WN, vitals as above, NAD, sitting up in bed, pleasant, conversing easily Respiratory: normal respiratory effort, lungs clear to auscultation, no wheeze, rales, rhonchi. Normal insp/exp effort, no accessory muscle use Cardiovascular: RRR, no murmur, no edema Vessels: no JVD or carotid bruit Chest: normal inspection of chest Abdomen: normal bowel sounds, soft, nontender, no hepatosplenomegaly Musculoskeletal: no cyanosis or clubbing, extremities motor strength 5/5 Skin: Left lower extremity; redness, swelling and warmth present in the left leg. Scratch hernandez present throughout. No open wounds. Right linear streaks on the thigh. Slight improvement noted compared to yesterday. Neurologic: PERRL, EOMI, accommodation nl, no face palsy, no dysarthria CN's II- XI intact bilaterally and moves all extremities Psychiatric: A+Ox3, euthymic affect Results & Data Results & Data Vital Signs (Past 12 Hours) Vital Signs Temp Pulse Resp BP Pulse Ox O2 Del Method 03/04/24 07:33 36.4 C L 79 18 125/80 96 Room Air
[2024-03-05 07:40] LABS: Basophils # (auto) 0.06 K/uL (0.00-0.20); Eosinophils # (auto) 0.36 K/uL (0.00-0.50); Eosinophils % (auto) 5.8 %; Hematocrit (blood only) 33.4 % (37.0-47.0); Hemoglobin 11.1 g/dl (12.0-16.0); Immature Granulocytes # (auto) 0.11 K/uL (0.01-0.20); Immature Granulocytes % (auto) 1.8 %; Lymphocytes # (auto) 1.09 K/uL (1.20-3.40); Lymphocytes % (auto) 17.6 %; Mean Corpuscular Hemoglobin 27.3 pg (25.0-34.0); Mean Corpuscular Hgb Conc 33.2 g/dL (32.0-36.0); Mean Corpuscular Volume 82.1 fL (80.0-100.0); Mean Platelet Volume 9.5 fL (9.4-12.4); Monocytes % (auto) 11.3 %; Neutrophils # (auto) 3.87 K/uL (1.40-6.50); Neutrophils % (auto) 62.5 %; Platelet Count 297 K/uL (130-400); RDW Coefficient of Variation 13.2 % (11.5-14.5); RDW Standard Deviation 39.6 fL (36.4-46.3); Red Blood Count 4.07 M/uL (4.20-5.40); White Blood Count 6.19 K/ul (4.8-10.8)
[2024-03-05 08:04] LABS: BUN Creatinine Ratio 24.5 (10-20); Calcium 8.4 mg/dl (8.6-10.3); Creatinine Clr Calc Pharmacy 160.2 ml/min; Est GFR (African American) 128.3 ml/min; Est GFR (Non-African American) 110.7 ml/min; Potassium 3.4 mmol/L (3.5-5.1)
[2024-03-05] MEDS: POTASSIUM CHLORIDE CRTAB 20 MEQ TABCR PO STA (09:45)
--- NOTE | 2024-03-05 10:50 | Infectious Disease Consult ---
Date of Service March 05, 2024 Telehealth Information I performed this visit using a real-time telehealth connection between my location and the patients location ([facility]). After connecting through interactive tele-video, patient was identified by name and date of and/or wristband check.Patient (or authorized healthcare sales representative) was informed that this was a telemedicine visit and it was being conducted confidentially over secure lines. My office door was closed and no one else was present in the room with me.Patient (or authorized healthcare sales representative) provided consent to proceed with the visit, expressed an understanding of privacy and security of the telemedicine visit, and gave permission to have a hospital sales representative in the room in order to assist with the visit and to conduct portions of the visit, as needed. I informed the patient (or authorized healthcare sales representative) that I reviewed their record and presented the opportunity for them to ask any questions regarding the visit today. The patient agreed to participate. Assessment & Plan (1) Left leg cellulitis: Plan 48-year-old female presenting with progressive left leg swelling, past 48 hours with subjective fever /nausea/ generalized weakness. Concern for cellulitis in setting of recent rash which has developed to pain and swelling with initial leukocytosis. Considering patient has vastly improved while on IV antibiotics may transitioned to p.o. therapy for a total of 10 days with close follow up by PCP. left leg cellulitis likely secondary to skin break from recent rash and normal skin samantha colonization plan: - Patient has remained afebrile and white count now within normal limits - Discontinue vancomycin ceftriaxone - Transitioned to cefuroxime 500 mg p.o. q.12 hours for a total of 10 days therapy through 03/13 - Please have patient follow up with PCP prior to antibiotic completion to evaluate for complete resolution of cellulitis with option to extend therapy for a total of 14 days - ID will sign off at this time, please feel free to reach out with any further questions or concerns Case discussed with ID attending Dr. Maite Barrow MD Infectious Disease PGY-4 [facility] I directly interacted with the patient and I agree with the assessment and plan History of Present Illness History of Present Illness Patient is a 48-year-old female with past medical history of asthma who presents with progression of LLE swelling, which has been present Increasing for the past two weeks. she had noted a rash on her leg proximally 4-5 weeks ago and thought it was eczema, she had been applying at home topical agents without improvement. Over the past 48 hours patient notes subjective fever accompanied by poor PO intake, nausea, and generalized weakness. Last Wednesday 02/28 she noted the increasing symptoms of generalized weakness and swelling, the rash with nonpurulent/non foul smelling clear discharge which prompted her to come to the ED for further examination. Reports no recent travel, no animal contacts, no extended time outdoors /wounds, denies any recent antibiotic administration prior to this admission. Patient denies any history of allergies to medication/foods. Upon presentation afebrile 37.1 C heart rate 74 respiratory rate 18 BP 104/72 on room air. Initial WBC on 03/02 15.85 now with a normal limits at 6.91. CXR negative, lower extremity Dopplers negative. Patient currently on vancomycin ceftriaxone. Allergies Allergy/AdvReac Type Severity Reaction Status Date / Time animal dander Allergy Mild runny Unverified 03/02/24 16:26 nose, itchy eyes tree and shrub pollen Allergy Mild runny Unverified 03/02/24 16:26 nose, itchy eyes Home Medications Medication Instructions Recorded Confirmed Type Calcium + D 2 tab PO PM 03/02/24 03/02/24 History Multi Vitamin 2 tab PO PM 03/02/24 03/02/24 History albuterol sulfate 90 mcg/actuation 2 puff inhalation Q4H PRN Other 03/02/24 03/02/24 History aerosol inhaler fluticasone propionate 220 2 puff inhalation UD PRN Cough 03/02/24 03/02/24 History mcg/actuation HFA aerosol inhaler amoxicillin 875 mg-potassium 1 tab PO BID 7 days #14 tabs 03/04/24 Rx clavulanate 125 mg tablet doxycycline hyclate 100 mg capsule 100 mg PO BID 7 days #14 caps 03/04/24 Rx Patient History Medical History No pertinent past medical history Surgical History No pertinent past surgical history Social History Smoking Status: Never smoker Hx Alcohol Use: No Hx Substance Use: No Preferred Language: French Communication Ability: Effective Health Evaluator Required: No Beliefs That Will Affect Care: None Current Living Situation: Family Feels Safe at Home: Yes Safety Concerns: Feels Safe At This Time Assistive Devices: None Review of Systems Constitutional: No weight loss/gain, fatigue, fever, loss of appetite Eyes: No pain, drainage, vision change HENT: No ear pain/drainage, sinus infections, hearing loss Cardiovascular: No chest pain, palpitations, lower extremity swelling Respiratory: No shortness of breath, wheezing, cough, sputum production Gastrointestinal: No abdominal pain, nausea/vomiting, indigestion/heartburn Skin: No rash, lesions Neurological: No dizziness, weakness, confusion, sensory changes Results & Data Vital Signs (Past 12 Hours) Vital Signs Temp Pulse Resp BP Pulse Ox O2 Del Method 03/05/24 07:13 36.8 C 83 16 126/79 97 Room Air Laboratory Results Laboratory Results WBC 6.19 K/ul (4.8-10.8) 03/05/24 07:12 RBC 4.07 M/uL (4.20-5.40) L 03/05/24 07:12 Hgb 11.1 g/dl (12.0-16.0) L 03/05/24 07:12 Hct 33.4 % (37.0-47.0) L 03/05/24 07:12 MCV 82.1 fL (80.0-100.0) 03/05/24 07:12 MCH 27.3 pg (25.0-34.0) 03/05/24 07:12 MCHC 33.2 g/dL (32.0-36.0) 03/05/24 07:12 RDW Std Deviation 39.6 fL (36.4-46.3) 03/05/24 07:12 RDW Coeff of Jennifer 13.2 % (11.5-14.5) 03/05/24 07:12 Plt Count 297 K/uL (130-400) 03/05/24 07:12 MPV 9.5 fL (9.4-12.4) 03/05/24 07:12 Immature Gran % (Auto) 1.8 % 03/05/24 07:12 Neut % (Auto) 62.5 % 03/05/24 07:12 Lymph % (Auto) 17.6 % 03/05/24 07:12 [place] % (Auto) 11.3 % 03/05/24 07:12 Eos % (Auto) 5.8 % 03/05/24 07:12 Baso % (Auto) 1.0 % 03/05/24 07:12 Neut # (Auto) 3.87 K/uL (1.40-6.50) 03/05/24 07:12 Lymph # (Auto) 1.09 K/uL (1.20-3.40) L 03/05/24 07:12 [place] # (Auto) 0.70 K/uL (0.11-0.59) H 03/05/24 07:12 Eos # (Auto) 0.36 K/uL (0.00-0.50) 03/05/24 07:12 Baso # (Auto) 0.06 K/uL (0.00-0.20) 03/05/24 07:12 Immature Gran # (Auto) 0.11 K/uL (0.01-0.20) 03/05/24 07:12 ESR 58 mm/hr (0-30) H 03/03/24 06:33 PT 11.9 Seconds (9.0-12.0) 03/02/24 12:59 INR 1.1 (0.9-1.1) 03/02/24 12:59 APTT 35 Seconds (21-31) H 03/02/24 12:59 PTT Ratio 1.2 03/02/24 12:59 Sodium 139 mmol/L (136-145) 03/05/24 07:12 Potassium 3.4 mmol/L (3.5-5.1) L 03/05/24 07:12 Chloride 104 mmol/L (98-107) 03/05/24 07:12 Carbon Dioxide 27 mmol/L (21-32) 03/05/24 07:12 Anion Gap 8 (3-11) 03/05/24 07:12 BUN 13 mg/dl (6-23) 03/05/24 07:12 Creatinine 0.53 mg/dl (0.6-1.2) L 03/05/24 07:12 Est Cr Clr Drug Dosing 160.2 ml/min 03/05/24 07:12 Est GFR ( Amer) 128.3 ml/min 03/05/24 07:12 Est GFR (Non-Af Amer) 110.7 ml/min 03/05/24 07:12 BUN/Creatinine Ratio 24.5 (10-20) H 03/05/24 07:12 Glucose 98 mg/dl (70-99(Fasting)) 03/05/24 07:12 Calcium 8.4 mg/dl (8.6-10.3) L 03/05/24 07:12 Magnesium 1.9 mg/dl (1.7-2.4) 03/04/24 05:23 Iron 19 mcg/dl (35-150) L 03/04/24 05:23 Transferrin 222 mg/dl (200-360) 03/04/24 05:23 Ferritin 249.0 ng/ml (8-388) 03/04/24 05:23 Total Bilirubin 0.4 mg/dl (0.2-1.0) 03/04/24 05:23 AST 27 U/L (13-39) 03/04/24 05:23 ALT 27 U/L (7-52) 03/04/24 05:23 Alkaline Phosphatase 65 U/L (34-104) 03/04/24 05:23 Troponin I High Sens 9.4 pg/ml (0-14) 03/02/24 13:39 C-Reactive Protein 26.32 mg/dl (0-0.5) H 03/03/24 06:33 Total Protein 6.2 gm/dl (6.0-8.3) 03/04/24 05:23 Albumin 3.2 gm/dl (3.4-5.0) L 03/04/24 05:23 Globulin 3.0 gm/dl (2.5-4.0) 03/04/24 05:23 Albumin/Globulin Ratio 1.1 (0.9-2) 03/04/24 05:23 Vitamin B12 494 pg/ml (180-914) 03/04/24 05:23 Folate > 22.30 ng/ml (>5.38) 03/04/24 05:23 Procalcitonin 2.01 ng/ml (0-0.5) H 03/02/24 14:27 Urine Osmolality 437 mOsm/kg (500-800) L 03/02/24 Unknown Urine Sodium < 10 mmol/L 03/02/24 Unknown Urine Potassium 43.2 mmol/L 03/02/24 Unknown Urine Chloride < 15 mmol/L 03/02/24 Unknown Random Vancomycin 6.7 mcg/ml (10-20) L 03/04/24 05:23 Impressions Chest X-Ray 03/02/24 12:46 XR chest 1V not portable HISTORY: 48 years-old Female Chest pain, nonspecific COMPARISON: None TECHNIQUE: AP view of the chest FINDINGS: Cardiomediastinal and hilar silhouettes are within normal limits. No pneumothorax, pleural effusion or airspace consolidation. The bones appear normal. IMPRESSION: No acute process. ACT 112: Negative or not required by law. The above report was generated using voice recognition software. It may contain grammatical, syntax or spelling errors. Electronically signed by: Jerry Davis M.D. 03/02/2024 1:48 PM Venous Doppler Study 03/02/24 13:20 LEFT LOWER EXTREMITY VENOUS DOPPLER HISTORY: Left leg pain, swelling COMPARISON STUDY: None. FINDINGS: There is normal compressibility, flow, and augmentation within the left lower extremity deep venous system. There are few prominent left inguinal lymph nodes with the largest measuring 29 x 16 x 20 mm. These demonstrate thin cortex and a normal fatty hilum. Therefore, these are likely reactive. IMPRESSION: 1. No DVT within the left lower extremity. 2. Mild left inguinal lymphadenopathy. This is likely reactive. ACT 112: Negative or not required by law. Electronically signed by: Michael Sam M.D. 03/02/2024 4:[address] 03/04/24 11:03 CT tib/fib LT wo con HISTORY: 48 years-old Female Rule out underlying abscess acute pain and swelling of the left lower leg. Clinical concern for possible abscess COMPARISON: Ultrasound Doppler study 03/02/2024 TECHNIQUE: Multiple axial CT images of the left tibia and fibula were obtained without IV contrast. A dose lowering technique was used consistent with the principals of ALARA. FINDINGS: Moderate subcutaneous edema is most pronounced anteriorly in the lower leg. There is associated diffuse dermal thickening. No fluid collections. The musculature appears unremarkable by CT. Suboptimal evaluation of the ligaments and tendons by CT technique. There is lateral tilt of the patella within the trochlear groove. There is at least mild osteoarthritis of the knee and ankle. No acute fracture, dislocation, destructive bone lesion or osseous erosion is identified. IMPRESSION: 1. No acute osseous abnormality. 2. Moderate subcutaneous edema with dermal thickening. Differential considerations include cellulitis, lymphedema or venous stasis. 3. No fluid collections to suggest abscess. 4. Osteoarthritis of the knee and ankle with small knee joint effusion. ACT 112: Negative or not required by law. The above report was generated using voice recognition software. It may contain grammatical, syntax or spelling errors. Electronically signed by: Jerry Davis M.D. 03/04/2024 1:40 PM
--- NOTE | 2024-03-05 14:34 | Pharmacy Report ---
Pharmacy PK ABX Note - Date of Service March 05, 2024 - Assessment and Plan Assessment 48 year old F receiving vancomycin and ceftriaxone for treatment of left leg cellulitis. * Day #4 of antimicrobial therapy. Failed outpatient Cefdinir. * Afebrile. Leukocytosis resolved. Renal function stable. * Blood cultures show no growth at 48 hours. * Anticipating transition to PO antibiotics in coming days Plan Vancomycin * Current regimen: 1250 mg IV every 8 hours * Trough level obtained 03/05/24 resulted as 12.6 mcg/mL. This is predicted to result in a therapeutic AUC/KEVIN of 400-600 mg/L.hr * Continue 1250 mg IV every 8 hours * Predicted AUC at steady state: 452 mg/L.hr * Will repeat level in the next 48-72 hours if therapy is continued and/or change in patient clinical status Ceftriaxone * 2000 mg IV every 24 hours Pharmacy will continue to follow and will adjust dose/frequency as necessary. Thank you. Pharmacy has transitioned to AUC monitoring for vancomycin. AUC/KEVIN is the preferred PK/PD target and is associated with decreased risk of nephrotoxicity compared to traditional trough targets.
--- NOTE | 2024-03-05 16:58 | Hospitalist Progress Note ---
Date of Service March 05, 2024 Assessment & Plan (1) Left leg cellulitis: Plan: Patient is a 48-year-old female with past medical history of asthma who presents with left lower extremity swelling, redness for several weeks. Initially started as a rash to L pretibial surface. She tried OTC gold simmons/neosporin w/o relief. Leukocytosis present on admission; improved. Procalcitonin elevated Chest x-ray - no infiltrates Venous duplexno DVT, mild left inguinal lymphadenopathy Blood cultureno growth in 48 hours ESR 58, CRP 26.32, Procal 2.01 CT of the leg did not show any underlying abscess Continue on ceftriaxone 03/03 and vancomycin 03/03; ID evaled 03/05, to PO cefuroxime w/ plan for 10-14 days Rx. Appreciate infectious disease input. (2) Hyponatremia: Plan: Sodium of 129 on presentation; improved to 136 after hydration Likely secondary to p.o. intake (3) Morbid obesity with BMI of 40.0-44.9, adult: Plan: BMI 44.5 encourage diet/lifestyle modifications Discussed following up with PCP to discuss further intervention (4) Hypokalemia: Plan: repleted Chronic conditions; Asthma; no flare, wheeze on examination. Continue home inhalers. Full code DVT prophylaxis heparin Dispo: if erythema stable/improving on oral atb, likely dc chauncey. PCP: Kim Clark, DO Please note the above document was generated using voice recognition software. It may contain grammatical, syntax or spelling errors. Any formal questions or concerns about the content, text or information contained within the body of this dictation should be directly addressed to the provider for clarification Admission and Anticipated Discharge Date Admission Date: March 02, 2024 Subjective Patient seen and examined at bedside. She reports that the swelling in the leg is persistent. Reports improving pain and erythema. No other significant events overnight. Patient reports feeling overall better. Has been afebrile Physical Exam Physical Exam: Constitutional: WD/WN, vitals as above, NAD, sitting up in bed, pleasant, conversing easily Respiratory: normal respiratory effort, lungs clear to auscultation, no wheeze, rales, rhonchi. Normal insp/exp effort, no accessory muscle use Cardiovascular: RRR, no murmur, no edema Vessels: no JVD or carotid bruit Chest: normal inspection of chest Abdomen: normal bowel sounds, soft, nontender, no hepatosplenomegaly Musculoskeletal: no cyanosis or clubbing, extremities motor strength 5/5 Skin: Left lower extremity; redness, swelling and warmth present in the left leg - redness/warmth seems improving. Scratch hernandez present throughout. No open wounds. Right linear streaks on the thigh. Neurologic: PERRL, EOMI, accommodation nl, no face palsy, no dysarthria CN's II- XI intact bilaterally and moves all extremities Psychiatric: A+Ox3, euthymic affect Results & Data Results & Data Vital Signs (Past 12 Hours) Vital Signs Temp Pulse Resp BP BP Pulse Ox O2 Del Method 03/05/24 15:07 36.6 C 81 15 123/80 97 Room Air 03/05/24 07:13 36.8 C 83 16 126/79 97 Room Air
[2024-03-05] MEDS: cefUROXime axetil 500 MG TAB PO SCH (21:11)
[2024-03-06 07:05] LABS: Hematocrit (blood only) 31.3 % (37.0-47.0); Hemoglobin 10.5 g/dl (12.0-16.0); Mean Corpuscular Hemoglobin 27.6 pg (25.0-34.0); Mean Corpuscular Hgb Conc 33.5 g/dL (32.0-36.0); Mean Corpuscular Volume 82.2 fL (80.0-100.0); Platelet Count 312 K/uL (130-400); RDW Coefficient of Variation 13.3 % (11.5-14.5); RDW Standard Deviation 39.7 fL (36.4-46.3); Red Blood Count 3.81 M/uL (4.20-5.40); White Blood Count 6.11 K/ul (4.8-10.8)
[2024-03-06 07:27] LABS: BUN Creatinine Ratio 22.4 (10-20); Calcium 8.7 mg/dl (8.6-10.3); Creatinine Clr Calc Pharmacy 173.3 ml/min; Est GFR (African American) 131.7 ml/min; Est GFR (Non-African American) 113.6 ml/min; Magnesium 1.8 mg/dl (1.7-2.4); Potassium 3.6 mmol/L (3.5-5.1)
--- NOTE | 2024-03-06 12:04 | Discharge Summary ---
Date of Service March 06, 2024 Admission HPI Per Admitting Provider History obtained from chart review and interview with the patient. Patient is a 48-year-old female with past medical history of asthma who presents with left lower extremity swelling, redness for several weeks. Patient noticed rash on her left leg since December; used over the counter cream. Patient started to notice fever, chills since last 2 days. She also reports nausea, low appetite and weakness They also noticed the rash going up her thigh and groin. She reports scratching on the rash; no other history of trauma. She denies any chest pain, shortness of breath, abdominal pain or urinary symptoms. On presentation to the ED, patient is afebrile, saturating well on room air. Leukocytosis present BMP reveals sodium of 129, potassium of 3.4. BUN/creatinine within normal limits. Liver enzymes within normal limits. Procalcitonin elevated Chest x-ray personally reviewed; no infiltrates Venous duplexno DVT, mild left inguinal lymphadenopathy Past medical history; asthma on inhalers Family history; no pertinent family history Social history; non-smoker. Works at computer science [employer] Surgical history; no past surgical history Admission Exam Per Admitting Provider Constitutional: WD/WN, vitals as above, NAD, sitting up in bed, pleasant, conversing easily Respiratory: normal respiratory effort, lungs clear to auscultation, no wheeze, rales, rhonchi. Normal insp/exp effort, no accessory muscle use Cardiovascular: RRR, no murmur, no edema Vessels: no JVD or carotid bruit Chest: normal inspection of chest Abdomen: normal bowel sounds, soft, nontender, no hepatosplenomegaly Musculoskeletal: no cyanosis or clubbing, extremities motor strength 5/5 Skin: Left lower extremity; redness, swelling and warmth present in the left leg. Scratch hernandez present throughout. No open wounds. Right linear streaks on the thigh Neurologic: PERRL, EOMI, accommodation nl, no face palsy, no dysarthria CN's II- XI intact bilaterally and moves all extremities Psychiatric: A+Ox3, euthymic affect Principal Diagnosis Left leg cellulitis Discharge Exam Constitutional: WD/WN, vitals as above, NAD, sitting up in bed, pleasant, conversing easily Respiratory: normal respiratory effort, lungs clear to auscultation, no wheeze, rales, rhonchi. Normal insp/exp effort, no accessory muscle use Cardiovascular: RRR, no murmur, no edema Vessels: no JVD or carotid bruit Chest: normal inspection of chest Abdomen: normal bowel sounds, soft, nontender, no hepatosplenomegaly Musculoskeletal: no cyanosis or clubbing, extremities motor strength 5/5 Skin: Left lower extremity; redness, swelling and warmth present in the left leg - has improved significantly. No open wounds. Neurologic: PERRL, EOMI, accommodation nl, no face palsy, no dysarthria CN's II- XI intact bilaterally and moves all extremities Psychiatric: A+Ox3, euthymic affect Discharge Data Allergies Allergy/AdvReac Type Severity Reaction Status Date / Time animal dander Allergy Mild runny Unverified 03/02/24 16:26 nose, itchy eyes tree and shrub pollen Allergy Mild runny Unverified 03/02/24 16:26 nose, itchy eyes Consultations 03/02/24 17:23 ED Decision to Admit Stat 03/04/24 11:03 Consult Infectious Diseases Routine Ordered Studies 03/02/24 13:20 US venous doppler LE LT Stat 03/04/24 11:03 CT leg [CT tib/fib LT wo con] Routine Hospital Course (1) Left leg cellulitis: Patient is a 48-year-old female with past medical history of asthma who presents with left lower extremity swelling, redness for several weeks. Initially started as a rash to L pretibial surface. She tried OTC gold simmons/neosporin w/o relief. Leukocytosis present on admission; improved. Procalcitonin elevated Chest x-ray - no infiltrates Venous duplexno DVT, mild left inguinal lymphadenopathy Blood cultureno growth in 48 hours ESR 58, CRP 26.32, Procal 2.01 CT of the leg did not show any underlying abscess Continue on ceftriaxone 5/1 and vancomycin 5/1; ID evaled 5/3, to PO cefuroxime w/ plan for 10-14 days Rx. Appreciate infectious disease input. LLE erythema/pain/swelling improved significantly, patient hemodynamically stable and would like to go home. Patient advised to follow-up with PCP within a week time and if not improving/based on further evaluation patient was made aware that her PCP might need to increase the duration on probiotics while on antibiotic. Antibiotic. (2) Hyponatremia: Sodium of 129 on presentation; improved to 136 after hydration Likely secondary to p.o. intake (3) Morbid obesity with BMI of 40.0-44.9, adult: BMI 44.5 encourage diet/lifestyle modifications Discussed following up with PCP to discuss further intervention (4) Hypokalemia: repleted Chronic conditions; Asthma; no flare, wheeze on examination. Continue home inhalers. Full code DVT prophylaxis heparin PCP: Kim Clark, DO Plan Patient is being discharged to home with following instruction at the point of discharge: Follow-up with your primary care physician within a week time and likely you will need labs CBC/CMP/magnesium/phosphorus. You will be discharged on antibiotic to complete 10 days therapy. As discussed at the bedside, follow-up with your PCP office before the completion of antibiotic so that you can be reevaluated whether or not to continue antibiotic for further few days. Continue to take probiotic while on antibiotic. Take your medications as prescribed. Please make sure that you are able to get your medications today by calling your pharmacy before you leave the hospital so that your treatment continuity is not broken. Please note the above document was generated using voice recognition software. It may contain grammatical, syntax or spelling errors. Any formal questions or concerns about the content, text or information contained within the body of this dictation should be directly addressed to the undersigned for clarification. Home Health Attestation I certify that this patient is under my care and that I, or a physicians a ssistant working with me, had a face to-face encounter that meets the home health [id number] encounter requirements with this patient. The encounter with the patient was in whole, or in part, for the following medical condition, which is the primary reason for home health care (list medical condition): I certify that, based on my findings, the following services are medically necessary home health services: My clinical findings support the need for the above services because: Further, I certify that my clinical findings support that this patient is homebound (i.e. absences from home require considerable and taxing effort and are for medical reasons or [facility] services or infrequently or of short duration when for other reasons) because: Certification for Home Health Services: Based on the above findings, I certify that this patient is confined to the home and needs intermittent mcc care, physical therapy and/or speech therapy or continues to need occupational therapy. The patient is under my care, and I have initiated the establishment of the plan of care. This patient will be followed by a physician who will periodically review the plan of care. Total Time Total Time Spent Total Time Spent (In Minutes): 45 Discharge Plan Discharge Items Patient Disposition: Home - Self-Care Reason For Visit: LLE CELLULITIS Discharge Diagnosis: Left leg cellulitis Activity: Resume your previous activity Non-emergency contact: Primary Care Provider Call non-emergency contact if: you have any medication questions Follow-up/Referrals: Kim Clark DO [Primary Care Provider] - (Date & Time 03/12/2024 8:00 AM Provider Kim Clark DO Department [facility] [place] ) Diet: Regular Addtl Attending Provider Instructions: Follow-up with your primary care physician within a week time and likely you will need labs CBC/CMP/magnesium/phosphorus. You will be discharged on antibiotic to complete 10 days therapy. As discussed at the bedside, follow-up with your PCP office before the completion of antibiotic so that you can be reevaluated whether or not to continue antibiotic for further few days. Continue to take probiotic while on antibiotic. Take your medications as prescribed. Please make sure that you are able to get your medications today by calling your pharmacy before you leave the hospital so that your treatment continuity is not broken. Pending Studies at Discharge: No Stand-Alone Forms: My [facility] [employer], Smoking Cessation Medications and DC Order Prescriptions: New cefuroxime axetil 500 mg Tablet 500 mg PO BID 7 Days Qty: 14 0RF Advanced Probiotic 625 mg (10 billion cell) Capsule 1 cap PO DAILY 7 Days Qty: 7 0RF Continued fluticasone propionate 220 mcg/actuation HFA aerosol inhaler 2 puff INHALATION UD PRN (Reason: Cough) albuterol sulfate 90 mcg/actuation HFA aerosol inhaler 2 puff INHALATION Q4H PRN (Reason: Other) Calcium + D 2 tab PO PM Multi Vitamin 2 tab PO PM Rx Instructions: chewable Discharge Orders: Discharge Order (Routine); Ordered 03/06/24 Ordered By: Destinee Wong Admission Data Admit Date/Time: 03/02/24 17:40 Attending Provider: Destinee Wong Admit Provider: Devkota,Juan Primary Care Provider: Kim Clark Other Providers: Juan Chinchilla; Boni Padilla; Jaycob Carbajal; Harpreet Solorio I.; Mohit Núñez II; Toya Malagon; Jordi Wright; Nelson Lilly; Gabbie Fernandes; Eílas Valerio; Milton Barrow; Humphrey Valle
== END 2024-03-06 13:24 | disposition home or self-care (01) | DRG 603 ==
LOC: ED 12:34 → 3N 17:40 → SUATTDRO 17:40 → 3N 20:17